=== PATIENT | female | born 1945 | race Caucasian/White ===

== ENCOUNTER 2022-08-14 09:10 | Outpatient (CLI) | payer MEDICARE, OTHER, SELFPAY | END 2022-08-14 09:11 | disposition home or self-care (01) | PROVIDERS: PCP Family Medicine; Visit Provider Family Medicine | DX: M54.16 Radiculopathy, lumbar region (principal); M51.36 Other intervertebral disc degeneration, lumbar region | CPT/HCPCS: 62323; J0702; Q9966 ==

== ENCOUNTER 2023-11-05 06:34 | Outpatient (CLI) | payer MEDICARE, OTHER, SELFPAY ==
[2023-11-05 07:18] VITALS: BP 143/61; PULSE 82; RESP 16; O2SAT 96
[2023-11-05 07:42] VITALS: BP 151/64; PULSE 88; RESP 16; O2SAT 98
== END 2023-11-05 07:59 | disposition home or self-care (01) ==
PROVIDERS: PCP Family Medicine; Visit Provider Family Medicine
DX: M70.62 Trochanteric bursitis, left hip (principal); M76.02 Gluteal tendinitis, left hip; M62.89 Other specified disorders of muscle
CPT/HCPCS: 27000; 27006; 76942; J0665